=== PATIENT | male | born 1985 | race Caucasian/White ===

== ENCOUNTER 2025-04-24 19:29 | Emergency (ER) | payer OTHER ==
[2025-04-24] MEDS: Bacitracin Oint 1 GM U/D Packet TOP ONE (19:44)
[2025-04-24] MEDS: Diphtheria,Pertussis(Acell),Tetanus Vaccine 0.5 ML Syringe IM ONE (20:05)
== END 2025-04-24 20:24 | disposition home or self-care (01) ==
LOC: CC.ED 19:29
DX: S61.212A Laceration without foreign body of right middle finger without damage to nail, initial encounter (principal); Z23 Encounter for immunization; W26.8XXA Contact with other sharp object(s), not elsewhere classified, initial encounter; Y93.68 Activity, volleyball (beach) (court)
CPT/HCPCS: 12001; 90471; 90715; 99282-25; J2003